=== PATIENT | male | born 1990 | race Caucasian/White ===

== ENCOUNTER 2021-07-19 14:36 | Emergency (ER) | payer OTHER ==
[~2021-07-19] VITALS: Ht 172.7 cm; Wt 75.0 kg
[2021-07-19 15:04] VITALS: BP 117/75
== END 2021-07-19 18:13 | disposition left against medical advice (07) ==
LOC: ER 14:55
DX: Z53.21 Procedure and treatment not carried out due to patient leaving prior to being seen by health care provider (principal)

== ENCOUNTER 2022-01-21 18:14 | Emergency (ER) | payer MEDICAID, OTHER ==
[~2022-01-21] VITALS: Ht 167.6 cm; Wt 78.0 kg
[2022-01-22] MEDS ORDERED: KETOROLAC 60MG/2ML VIAL IM STA (00:04)
[2022-01-22] MEDS ORDERED: ONDANSETRON 4MG ODT PO ONE (00:15)
[2022-01-22] MEDS ORDERED: FAMOTIDINE 20MG TABLET PO ONE (00:15)
[2022-01-22 00:42] LABS: BASOPHILS % 0.4 % (0.0-2.0); EOSINOPHILS % 1.9 % (0.0-5.0); HEMATOCRIT. 43.7 % (42.0-52.0); HEMOGLOBIN. 14.9 g/dL (14.0-18.0); LYMPHOCYTES % 8.4 % (20.0-50.0); MEAN CORPUSCULAR HEMOGLOBIN 30.3 pg (28.0-32.0); MEAN CORPUSCULAR VOLUME 89.1 fL (80.0-94.0); MEAN PLATELET VOLUME 7.4 fl (7.4-10.4); MONOCYTES % 5.5 % (2.0-8.0); NEUTROPHILS % 83.8 % (40.0-76.0); PLATELET 326 x1000/uL (130-400); RED BLOOD CELL COUNT 4.91 mill/uL (4.7-6.1); RED CELL DISTRIBUTION WIDTH 13.7 % (11.6-14.6)
[2022-01-22 00:48] LABS: CHLORIDE 101 mEq/L (98-107)
[2022-01-22 00:54] LABS: ETHANOL BLOOD < 10 mg/dL
[2022-01-22] MEDS ORDERED: BISM-169 PO (02:18)
[2022-01-22] MEDS ORDERED: NAPR-681 PO (02:18)
[2022-01-22] MEDS ORDERED: ONDA4TAB50 PO (02:18)
[2022-01-22 02:30] VITALS: BP 128/75
== END 2022-01-22 02:40 | disposition home or self-care (01) ==
LOC: ER 18:14
DX: K52.9 Noninfective gastroenteritis and colitis, unspecified (principal); F12.10 Cannabis abuse, uncomplicated; F15.10 Other stimulant abuse, uncomplicated
CPT/HCPCS: 36415; 80053; 80320; 83690; 85025; 96372; 99283; J1885; Q0162; G0480